=== PATIENT | female | born 1955 | race African-American/Black ===

== ENCOUNTER → 2020-06-15 | Outpatient (CLI) | payer BC ==
[2017-09-01 10:40] VITALS: BP 95/47
[~2020-06-15] MED LIST: ATOR10TA60 PO; AZIT1PAC9 PO; AZIT250T6 PO; BENZ-8 PO; PRED50TA PO; VENTOLIN HFA18 GM INH
== END | disposition home or self-care (01) ==
LOC: LAB 14:24
PROVIDERS: ATTEND Internal Medicine Gastroenterology
DX: Z01.818 Encounter for other preprocedural examination (principal); Z11.59 Encounter for screening for other viral diseases; Z12.11 Encounter for screening for malignant neoplasm of colon
CPT/HCPCS: U0003-CS

== ENCOUNTER → 2020-06-18 | Day surgery (SDC) | payer BC ==
[~2020-06-18] MED LIST changes: +IV RINGERS,LACTATED 1000ML 1,000 ML IV SCH; +LIDOCAINE 2% PF 5 ML VIAL. ONE; +PROPOFOL 10 MG/ML (20ML) VIAL. IV ONE
--- NOTE | 2020-06-18 11:09 | PREOP HP ---
DATE OF SERVICE: 06/18/2020 GASTROINTESTINAL PREOPERATIVE HISTORY AND PHYSICAL DATE OF PROCEDURE: 06/18/2020 REQUESTING PHYSICIAN: Rebecca Deal MD PRIMARY CARE PHYSICIAN: Rebecca Deal MD REASON FOR PROCEDURE: Colorectal cancer screening. HISTORY OF PRESENT ILLNESS: This is a 64-year-old female who presents for colorectal cancer screening. She denies any blood in her stool or abdominal pain. She normally has 1-2 bowel movements a day. ALLERGIES: No known drug allergies. MEDICATIONS: MAR reviewed. REVIEW OF SYSTEMS: A 13-point review of systems was done. It is positive as per HPI and otherwise negative. PHYSICAL EXAMINATION: VITAL SIGNS: She is afebrile and her vital signs are stable. GENERAL: She is a well-developed, well-nourished -[place] female, in no apparent distress. HEENT: Oropharynx is clear. CARDIOVASCULAR: S1, S2. LUNGS: Clear. ABDOMEN: Normoactive bowel sounds, soft, nontender, nondistended. EXTREMITIES: No edema. NEUROLOGIC: Awake, alert and oriented x 3. ASSESSMENT AND PLAN: Colorectal cancer screening. The risks and benefits of the procedure including bleeding, perforation, non-diagnosis and sedation were explained and she has agreed to proceed. RUDDY EISENBERG MD DR: MONAE/rajesh JOB#: [id number] / [id number]
[2020-06-18 11:11] VITALS: BP 145/79
== END | disposition home or self-care (01) ==
LOC: ENDOS 08:53
PROVIDERS: ATTEND Internal Medicine Gastroenterology
DX: Z12.11 Encounter for screening for malignant neoplasm of colon (principal); K64.0 First degree hemorrhoids; K63.89 Other specified diseases of intestine; Z79.899 Other long term (current) drug therapy
CPT/HCPCS: 45378; J2704